=== PATIENT | female | born 2000 | race Caucasian/White ===

== ENCOUNTER 2024-01-17 18:08 | Emergency (ER) | payer MEDICAID, OTHER ==
[~2024-01-17] VITALS: Ht 162.6 cm; Wt 63.5 kg
[2024-01-17] MEDS ORDERED: BACI500P4 TP (19:03)
[2024-01-17] MEDS ORDERED: CEPH-570 PO (19:03)
[2024-01-17] MEDS ORDERED: BACITRACIN ZINC OINT PACKET 1 EA PACKET TP ONE (19:08)
[2024-01-17 19:19] VITALS: BP 135/66; TEMP 98; O2SAT 97
== END 2024-01-17 19:19 | disposition home or self-care (01) ==
LOC: ER 18:45
DX: L55.0 Sunburn of first degree (principal); Z79.899 Other long term (current) drug therapy

== ENCOUNTER 2024-01-24 16:48 | Emergency (ER) | payer OTHER ==
[~2024-01-24] VITALS: Ht 162.6 cm; Wt 63.5 kg
[~2024-01-24 16:48] MED LIST: BACI500P4 TP; CEPH-570 PO
[2024-01-24] MEDS ORDERED: IBUPROFEN 600 MG TABLET ONE (18:10)
[2024-01-24] MEDS: IBUPROFEN 600 MG TABLET PO ONE (18:12)
[2024-01-24 18:39] VITALS: BP 131/67; TEMP 98.6; O2SAT 99
== END 2024-01-24 18:40 | disposition home or self-care (01) ==
LOC: ER 16:58
DX: R07.9 Chest pain, unspecified (principal)
CPT/HCPCS: 71045-TC

== ENCOUNTER 2025-01-28 12:30 | Emergency (ER) | payer OTHER ==
[~2025-01-28] VITALS: Ht 162.6 cm; Wt 65.8 kg
[2025-01-28 13:13] VITALS: TEMP 98
[2025-01-28] MEDS ORDERED: IBUPROFEN 400 MG TABLET ONE (14:30)
[2025-01-28] MEDS: IBUPROFEN 400 MG TABLET PO ONE (14:32)
[2025-01-28 15:31] VITALS: BP 127/73; O2SAT 98
== END 2025-01-28 15:32 | disposition home or self-care (01) ==
LOC: ER 12:36
DX: R51.9 Headache, unspecified (principal); R42 Dizziness and giddiness; R07.2 Precordial pain; R00.2 Palpitations
CPT/HCPCS: 84703-TC